=== PATIENT | female | born 1955 | race Caucasian/White ===

== ENCOUNTER → 2017-07-17 | Outpatient (CLI) | payer BC ==
[~2017-07-17] MED LIST: IBUP-1114 PO
[2017-07-17 13:28] LABS: ANION GAP 6 MEQ/L (8-16); BLOOD UREA NITROGEN 15 MG/DL (7-18); CARBON DIOXIDE LEVEL 29 MEQ/L (21-32); CHLORIDE LEVEL 108 MEQ/L (98-107); CREATININE FOR GFR 0.62 MG/DL (0.55-1.02); GLOMERULAR FILTRATION RATE > 60.0 (>51); GLUCOSE, FASTING 90 MG/DL (70-105); SODIUM LEVEL 143 MEQ/L (136-145)
--- NOTE | 2017-07-17 15:07 | ECGEPIP ---
Stationary ECG Study [facility] Test Date: 2017-07-17 Pat Name: TESFAYE CABALLERO Department: Room: - Gender: F Advanced Manager: [facility] : 1955 Requested By: VINNY Cross Order Number: [id number] Reading MD: Enedina Hidalgo Measurements Intervals [place] Rate: 65 P: 50 ND: 154 QRS: 18 QRSD: 94 T: 7 QT: 408 QTc: 425 Interpretive Statements SINUS RHYTHM WITH SINUS ARRHYTHMIA NO PRIOR Electronically Signed On 07-17-2017 15:07:11 EDT by Enedina Hidalgo
== END ==
LOC: M LAB 12:33
PROVIDERS: ATTEND Ophthalmology
DX: Z01.818 Encounter for other preprocedural examination (principal); H18.459 Nodular corneal degeneration, unspecified eye; N95.1 Menopausal and female climacteric states; I49.9 Cardiac arrhythmia, unspecified

== ENCOUNTER → 2017-07-26 | Outpatient (REF) | payer BC ==
[2017-07-28 00:06] LABS: Lyme Disease IgG/IgM Antibodie <0.91 ISR (0.00-0.90); Lyme Disease IgM Ab Quantitati <0.80 index (0.00-0.79)
== END ==
LOC: M LAB REF 13:54
PROVIDERS: ATTEND Internal Medicine
DX: M79.1 Myalgia (principal)

== ENCOUNTER 2017-08-02 10:25 | Day surgery (SDC) | payer BC ==
--- NOTE | 2017-07-27 13:36 | CR ---
DATE OF CONSULTATION: 07/27/2017 This is a consultation for Dr. Sorenson for superficial keratectomy with Dr. Sorenson at [facility] on August 02. Dear Dr. Sorenson: Thank you for asking me to see Ms. Carmen Helms on consultation before her eye surgery 08/02/2017. As you know, Ms. Helms is a 61-year-old female with a past medical history who has enjoyed quite good health but has a past medical history of dysthymia, osteopenia, arthralgias, migraines. The patient reports overall she has been symptomatically stable. Denying any fevers or chills, chest pain or shortness of breath. 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 The patient does have a history of depression. She is presently off of Prozac the last few months, she is unsure whether she will need when she starts the school year. Patient has history of joint pain. She has used diclofenac in the past, presently uses it only as needed but does complain of increased arthralgias over the last recent 3-6 months questioning whether it is related to inactivity weight gain or osteoarthritis. The patient does have migraines, chronic stable since getting through menopause The patient otherwise denies any fevers or chills, chest pain or shortness of breath. Review of systems otherwise negative. PAST MEDICAL HISTORY: 1. Osteopenia. 2. Tobacco abuse, quit in 1998. 3. De Quervain's tendonitis surgical release 2008. 4. Ovarian cystectomy by laparoscopy 5. G3, P3. 6. History of migraines. 7. Post menopausal with LMP 2007. 8. Depression/anxiety. MEDICATIONS: She takes multivitamin daily, calcium daily. DRUG ALLERGIES: None. but Fosamax did cause arthralgias. 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 . Three adult children. She is a former smoker. Occasionally consumes wine. FAMILY HISTORY: Father had anxiety and with Parkinson's. Mom had osteoporosis and with Alzheimer's. She has a daughter with hypothyroidism. Sisters with osteoporosis and hypertension. Grandparents with breast cancer, alcoholism, diabetes, and premature heart disease. PHYSICAL EXAMINATION: She is a thin female in no acute distress. Vital signs: weight 158 with a BMI of 27.8, O2 sat is 98%, blood pressure 126/76 with a heart rate of 80. HEENT: Examination head is normocephalic. Neck is supple. Pupils equal, reactive to light. Extraocular movements are intact. No thyromegaly, cervical lymphadenopathy or jugular venous distention (JVD). There is no oral ulcerations. Respiratory: Clear to auscultation, resonant to percussion. Breasts: Exam deferred. Cardiovascular: Regular rate rhythm. No murmur, rub, gallop. Abdomen: Normoactive bowel sounds. No hepatosplenomegaly. Extremities: No cyanosis, clubbing or edema. There is no evidence of rashes or joint swelling. Neurologic: Alert and oriented. Cranial nerves: Intact LABORATORY DATA: Because of complaints of increased arthralgias blood work is drawn. Her CRP is less than 0.3. Her nonfasting med profile shows a sugar of 125, otherwise normal. She has a normal CBC, CK, sed rate, TSH. The patient's EKG which was done at [facility] 07/17/2017 shows sinus arrhythmia, rate is 65, axis of 18, normal NE, QRS, TC interval. EKG is essentially normal, but without any significant change from EKG 04/11/2012. IMPRESSION: Carmen Helms a 61-year-old female with only cardiovascular risk factor being that of a menopausal status, has no signs symptoms indicative of cardiovascular ischemia. Is felt to be at low risk for cardiovascular complications from the proposed surgical intervention which can be further minimized by the following: Problem 1. Osteopenia. Hold calcium and D multivitamin morning of surgery. 2. Depression. She is weaned herself of fluoxetine, discussed with her risk of relapse and to contact us if she has further issues. 3. Perimenopausal. Discussed use of a plan, she follows with gynecology. 4. Migraines, minimal since menopause. 5. Arthralgias. Blood work reveals no significant pathology. We discussed regular exercise, topical therapies, sparing use of Tylenol and non-steroidal anti-inflammatory drugs (NSAIDs). 6. Wellness. Again diet and exercise reviewed. Annual flu shot recommended. Thank you very much for this consultation. Please call with any questions or concerns.
[~2017-08-02] VITALS: Ht 161.3 cm; Wt 71.7 kg
[~2017-08-02 10:25] MED LIST changes: +BETAMETHASONE SOLUSPAN 6MG/ML INJ 5ML (J0702) As Ordered ONE; +HEALON DUET (HEALON 10MG/ML 0.55ML & HEALON ENDOCOAT 30MG/ML 0.85ML) As Ordered ONE; +OFLOXACIN 0.3 % (OCUFLOX) OPTH SOL 5ML OS ONE; +PHENYLEPHRINE 2.5% OPHTH SOL 2ML OS ONE; +POVIDONE-IODINE 5% OPHTH PREP SOL 30ML As Ordered ONE; +PROPARACAINE 0.5% OPHTH SOL 15ML OS ONE; +TOBRADEX OPHTH OINT 3.5 GM As Ordered ONE; +TOBRAMYCIN INJ 80 MG/2 ML VIAL (J3260) As Ordered ONE; +TROPICAMIDE 1% OPHTH SOLN 2ML OS ONE
[2017-08-02] MEDS ORDERED: LIDOCAINE 1% SDV 5 ML VIAL SC ONE (10:45)
[2017-08-02] MEDS ORDERED: LR 1,000 ML IV SCH (10:45)
[2017-08-02] MEDS ORDERED: mitoMYcin 0.2 MG/VIAL KIT FOR OPHTHALMIC USE (J7315 PER 0.2MG) As Ordered ONE (11:05)
[2017-08-02] MEDS ORDERED: OFLOXACIN 0.3 % (OCUFLOX) OPTH SOL 5ML As Ordered ONE (11:16)
[2017-08-02 11:45] VITALS: BP 126/83
[2017-08-02] MEDS ORDERED: fentaNYL 100 MCG/2 ML INJECTION (J3010) As Ordered ONE (12:06)
[2017-08-02] MEDS ORDERED: MIDAZOLAM INJ 2 MG/2 ML VIAL (J2250) As Ordered ONE (12:06)
--- NOTE | 2017-08-03 12:54 | RO ---
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 PROCEDURE: Superficial keratectomy of the left eye and placement of Mitomycin C 0.2% concentration, left eye. SURGEON: Dr. Jose Sorenson. PAINT TRIMMER PIPE BOWLS: ANESTHESIA: Local with MAC. ESTIMATED BLOOD LOSS: The patient was identified in preoperative area and consent reviewed. The correct eye was marked. Patient received topical anesthetic drops and then was transferred to the operating room. Patient was prepped and draped in sterile fashion and Tegaderm tape was used to isolate the upper and lower eyelids and a wide lid speculum was placed. At that time, a Weck spear was used to rough up the superior epithelium until a free edge was created. At that time, the 0.12 forceps were used to grasp the free edge and lift gently to remove the Salzmann nodular degeneration. There were approximately three nodules in the superior peripheral corneal limbus. A crescent blade was used to qatari the cornea until smooth and then Mitomycin C was placed in a sponge form over the superior cornea and left in place for 12 seconds and then removed and washed vigorously with balanced salt solution. At that time, a collagen contact lens was placed that was soaked in Pred Forte and Polytrim drops. Wide lid speculum was removed and the patient was sent to the postanesthesia care unit in a stable condition. ELI
== END 2017-08-02 12:07 | disposition home or self-care (01) ==
LOC: M SDC 10:25
PROVIDERS: ATTEND Ophthalmology
DX: H18.452 Nodular corneal degeneration, left eye (principal); K21.9 Gastro-esophageal reflux disease without esophagitis; R06.83 Snoring; F32.9 Major depressive disorder, single episode, unspecified; M25.50 Pain in unspecified joint; F41.9 Anxiety disorder, unspecified; M85.88 Other specified disorders of bone density and structure, other site; G43.909 Migraine, unspecified, not intractable, without status migrainosus; N95.1 Menopausal and female climacteric states; Z87.891 Personal history of nicotine dependence
CPT/HCPCS: 65400; J2250; J3010; J7315

== ENCOUNTER → 2017-12-26 | Outpatient (CLI) | payer BC | LOC: M WHC 08:03 | DX: Z12.31 Encounter for screening mammogram for malignant neoplasm of breast (principal) ==

== ENCOUNTER → 2017-12-26 | Outpatient (REF) | payer BC | LOC: M SFHCWAGY 08:41 | DX: Z12.4 Encounter for screening for malignant neoplasm of cervix (principal) | CPT/HCPCS: G0123 ==

== ENCOUNTER 2018-12-05 06:09 | Day surgery (SDC) | payer BC ==
[~2018-12-05] VITALS: Ht 160 cm; Wt 73.0 kg
[~2018-12-05 06:09] MED LIST changes: -BETAMETHASONE SOLUSPAN 6MG/ML INJ 5ML (J0702) As Ordered ONE; +CALC1TAB26 PO; +FLUO20CA8 PO; -HEALON DUET (HEALON 10MG/ML 0.55ML & HEALON ENDOCOAT 30MG/ML 0.85ML) As Ordered ONE; +INTR6.5S PV; -OFLOXACIN 0.3 % (OCUFLOX) OPTH SOL 5ML OS ONE; -PHENYLEPHRINE 2.5% OPHTH SOL 2ML OS ONE; -POVIDONE-IODINE 5% OPHTH PREP SOL 30ML As Ordered ONE; +PROBCAP4 PO; -PROPARACAINE 0.5% OPHTH SOL 15ML OS ONE; -TOBRADEX OPHTH OINT 3.5 GM As Ordered ONE; -TOBRAMYCIN INJ 80 MG/2 ML VIAL (J3260) As Ordered ONE; -TROPICAMIDE 1% OPHTH SOLN 2ML OS ONE; +XIID5DRO OU
[2018-12-05] MEDS ORDERED: POVIDONE-IODINE 5% OPHTH PREP SOL 30ML As Ordered ONE (06:33)
[2018-12-05] MEDS ORDERED: mitoMYcin 0.2 MG/VIAL KIT FOR OPHTHALMIC USE (J7315 PER 0.2MG) As Ordered ONE (06:33)
[2018-12-05] MEDS ORDERED: PROPARACAINE 0.5% OPHTH SOL 15ML OD ONE (07:00)
[2018-12-05] MEDS ORDERED: OFLOXACIN 0.3 % (OCUFLOX) OPTH SOL 5ML OD ONE (07:00)
[2018-12-05] MEDS ORDERED: MIDAZOLAM INJ 2 MG/2 ML VIAL (J2250) As Ordered ONE (07:07)
[2018-12-05] MEDS ORDERED: fentaNYL 100 MCG/2 ML INJECTION (J3010) As Ordered ONE (07:08)
[2018-12-05 09:00] VITALS: BP 157/90
--- NOTE | 2018-12-06 07:12 | RO ---
DATE OF PROCEDURE: 12/05/2018 PREOPERATIVE DIAGNOSIS: 1. 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 POSTOPERATIVE DIAGNOSIS: 1. 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 PROCEDURE: 1. Superficial keratectomy with removal of Salzmann's nodules and use of mitomycin C 0.2%. SURGEON: Dr. Jose Sorenson BUILDING CARPENTER: ANESTHESIA: Local with monitored anesthesia care (MAC). SPECIMEN: Two fragments of Salzmann nodules sent to pathology. DESCRIPTION OF PROCEDURE: Patient was seen and identified in the preoperative area. The consents were reviewed. The surgical eye was marked. Patient received topical anesthetics and antibiotics to the surface of the surgical eye, and patient was transferred to the operating room. Patient was prepped and draped in a sterile fashion. Tegaderm was used to isolate the upper and lower eyelids and a wire lid speculum was placed. Using a crescent blade, the corneal epithelium was gently removed to expose the Salzmann nodules. Two Salzmann nodules were identified in the paracentral superior cornea. These were gently removed without difficulty using 0.12 forceps. These were sent to pathology for evaluation. At that time, a crescent blade was used to further remove the epithelium so that it was smooth and then a 0.25 mm quintin kirill was used to [place] citizen this area. Mitomycin C was prepared at the back table, and two sponges were placed over the cornea and left in place for approximately 15 seconds. This was then vigorously washed away with balanced salt solution (BSS). A bandage contact lens was placed, and patient was discharged to the postanesthesia care unit (PACU) in stable condition. ELI
== END 2018-12-05 09:00 | disposition home or self-care (01) ==
LOC: M SDC 06:09
PROVIDERS: ATTEND Ophthalmology
DX: H18.451 Nodular corneal degeneration, right eye (principal); K21.9 Gastro-esophageal reflux disease without esophagitis; F32.9 Major depressive disorder, single episode, unspecified; Z79.899 Other long term (current) drug therapy
CPT/HCPCS: 65400; 88300; J2250; J3010; J7315

== ENCOUNTER → 2019-05-08 | Outpatient (REF) | payer BC ==
[2019-05-08 18:26] LABS: AMYLASE 105 U/L (25-115); LIPASE 186 U/L (73-393)
== END ==
LOC: M LAB REF 17:25
PROVIDERS: ATTEND Nurse Practitioner Family
DX: R10.10 Upper abdominal pain, unspecified (principal)

== ENCOUNTER → 2020-12-07 | Outpatient (CLI) | payer BC ==
[~2020-12-07] MED LIST changes: +FLUO20CA20 PO; -FLUO20CA8 PO
--- NOTE | 2020-12-07 09:09 | REPMRS ---
Patient History The patient states she had a clinical breast exam in April 2020.Family history of breast cancer in paternal grandmother. 3D TOMOSYNTHESIS WAS PERFORMED. The Scott Brewer lifetime risk for breast cancer is 10.3%. Volpara breast density b. Digital Woman Screen Mammo: December 07, 2020 - Exam #: [id number] Bilateral CC and MLO view(s) were taken. Technologist: Lilliana Allen, Technologist Prior study comparison: December 26, 2017, digital woman screen mammo performed at [facility]. March 16, 2016, digital woman screen mammo performed at [facility]. FINDINGS: There are scattered fibroglandular densities. There has been no change in the appearance of the mammogram from the prior studies. There is a mild amount of residual fibroglandular tissue which is fairly symmetric. There is no interval development of dominant mass, architectural distortion, or clustered microcalcification suggestive of malignancy. Assessment: BI-RADS/ACR category 1 mammogram. Negative Mammogram. Recommendation Routine screening mammogram in 1 year (for women over age 40). This mammogram was interpreted with the aid of an FDA-approved computer-aided dectection system. Electronically Signed By: Shashi Woods MD 12/07/20 0909
--- NOTE | 2020-12-07 09:19 | DEXAMM ---
INDICATION: M85.80 [facility] DISRD OF BONE DENSITY AND STRUCTURE. COMPARISON: 03/12/2014, 04/19/2012. TECHNIQUE: Bone density was measured using dual-energy x-ray absorptiometry (DEXA). FINDINGS: AP SPINE L1-L4 BMD 0.879 g/cm2 Young Adult T-Score -2.5 Age Matched Z-Score -1.1. LT FEMUR, TOTAL BMD 0.935 g/cm2 Young Adult T-Score -0.6 Age Matched Z-Score 0.5. LT NECK BMD 0.921 g/cm2 Young Adult T-Score -0.8 Age Matched Z-Score 0.5. RT FEMUR, TOTAL BMD 0.834 g/cm2 Young Adult T-Score -1.4 Age Matched Z-Score -0.3. RT NECK BMD 0.783 g/cm2 Young Adult T-Score -1.8 Age Matched Z-Score -0.5. IMPRESSION: There is low bone density of the spine. There is normal bone density of the left hip. There is low bone density of the right hip. The density of the spine has decreased 6.3% since the initial exam on 04/19/2012. The density of the spine decreased 4.8% since most recent exam on 03/12/2014. The density of the left hip has increased 2.4% since initial exam on 04/19/2012. The density of the left hip has increased 2.9% since most recent exam on 03/12/2014. The density of the right hip has increased 0.7% since the initial exam on 04/19/2012. The density of the right hip has increased 0.7% since the most recent exam on 03/12/2014. FOLLOW-UP: Recommendation for the next bone density exam: 2 years. <Electronically signed by Shashi Woods > 12/07/20 0915
== END ==
LOC: M WHC 07:17
PROVIDERS: ATTEND Registered Nurse
DX: Z12.31 Encounter for screening mammogram for malignant neoplasm of breast (principal); M85.80 Other specified disorders of bone density and structure, unspecified site

== ENCOUNTER → 2022-01-05 | Outpatient (REF) | payer BC ==
[~2022-01-05] MED LIST changes: +FLUO-96 PO; -FLUO20CA20 PO
== END ==
LOC: M LAB REF 16:14
PROVIDERS: ATTEND Internal Medicine
DX: R20.2 Paresthesia of skin (principal); R53.83 Other fatigue

== ENCOUNTER → 2023-02-06 | Outpatient (CLI) | payer BC | LOC: M WHC 14:55 | PROVIDERS: ATTEND Internal Medicine | DX: Z12.31 Encounter for screening mammogram for malignant neoplasm of breast (principal); M81.0 Age-related osteoporosis without current pathological fracture ==

== ENCOUNTER → 2023-02-15 | Outpatient (CLI) | payer BC, MEDICARE | LOC: M WHC 08:07 | PROVIDERS: ATTEND Internal Medicine | DX: M81.0 Age-related osteoporosis without current pathological fracture (principal) ==

== ENCOUNTER → 2024-03-11 | Outpatient (CLI) | payer MEDICARE | LOC: M WHC 07:08 | PROVIDERS: ATTEND Internal Medicine | DX: Z12.31 Encounter for screening mammogram for malignant neoplasm of breast (principal) ==

== ENCOUNTER → 2024-04-02 | Outpatient (CLI) | payer MEDICARE | LOC: M WHC 13:52 | PROVIDERS: ATTEND Internal Medicine | DX: N63.0 Unspecified lump in unspecified breast (principal); Z12.31 Encounter for screening mammogram for malignant neoplasm of breast | CPT/HCPCS: 76642; 77065; G0279 ==

== ENCOUNTER → 2024-09-16 | Outpatient (CLI) | payer MEDICARE | LOC: M SLEEP 20:00 | PROVIDERS: ATTEND Internal Medicine Pulmonary Disease | DX: G47.33 Obstructive sleep apnea (adult) (pediatric) (principal); G47.61 Periodic limb movement disorder ==

== ENCOUNTER → 2024-09-29 | Outpatient (CLI) | payer MEDICARE | LOC: M WHC 13:34 | PROVIDERS: ATTEND Internal Medicine | DX: D48.62 Neoplasm of uncertain behavior of left breast (principal) | CPT/HCPCS: 77065; G0279 ==

== ENCOUNTER → 2024-10-07 | Outpatient (CLI) | payer MEDICARE | LOC: M RAD 12:15 | PROVIDERS: ATTEND Internal Medicine | DX: R06.02 Shortness of breath (principal) ==

== ENCOUNTER → 2024-10-16 | Outpatient (CLI) | payer MEDICARE | LOC: M CARPUL 10:35 | PROVIDERS: ATTEND Internal Medicine | DX: R06.02 Shortness of breath (principal) ==

== ENCOUNTER → 2024-12-23 | Outpatient (REF) | payer MEDICARE ==
[2024-12-23 17:21] LABS: PERCENT SATURATION 26.8 % (13.2-45.0)
[2024-12-23 17:25] LABS: INR 0.97; PARTIAL THROMBOPLASTIN TIME 29.7 SECONDS (24.8-34.2); PROTHROMBIN TIME 13.2 SECONDS (12.5-14.5)
== END ==
LOC: M LAB REF 16:12
PROVIDERS: ATTEND Internal Medicine
DX: Z01.812 Encounter for preprocedural laboratory examination (principal); D68.9 Coagulation defect, unspecified

== ENCOUNTER → 2025-08-12 | Outpatient (CLI) | payer MEDICARE ==
[~2025-08-12] MED LIST changes: +LIFI1DRO4 OU; -XIID5DRO OU
== END ==
LOC: M PLAIMG 11:02
PROVIDERS: ATTEND Nurse Practitioner Family
DX: R60.0 Localized edema (principal)

== ENCOUNTER → 2025-08-17 | Outpatient (REF) | payer MEDICARE | LOC: M LAB REF 18:04 | PROVIDERS: ATTEND Internal Medicine | DX: E03.9 Hypothyroidism, unspecified (principal) ==

== ENCOUNTER → 2025-09-02 | Outpatient (REF) | payer MEDICARE | LOC: M LAB REF 12:36 | PROVIDERS: ATTEND Internal Medicine | DX: M19.90 Unspecified osteoarthritis, unspecified site (principal) ==